=== PATIENT | male | born 1975 | race Caucasian/White ===

== ENCOUNTER 2018-10-02 17:48 | Observation (INO) | payer OTHER ==
--- NOTE | 2018-10-02 18:11 | EDPHY ---
H & P Stated Complaint: n/v, fever Time Seen by Provider: 10/02/18 18:11 HPI/ROS: HPI CHIEF COMPLAINT: Nausea, fever, abdominal discomfort HISTORY OF PRESENT ILLNESS: 43-year-old male, presents to the emergency room nausea, states that he has noticed yesterday he developed a fever to 103 he went to urgent care and had influenza done which was negative. He is recommended he comes to the emergency room if his fever did not break her increased. States he went home last night slept. Woke up today with fever. States was initially 101, then to 102 at home. Chills. Denies productive cough , denies severe sore throat, denies vomiting. He does report that he had some abdominal cramping and diarrhea. Past Medical History: Denies significant medical history Past Surgical History: Bilateral lower extremity surgeries. Social History: Denies drugs alcohol tobacco. Family History: Noncontributory ROS REVIEW OF SYSTEMS: 10 Systems were reviewed and negative with the exception of the elements mentioned in the history of present illness. Exam Constitutional nontoxic triage nursing summary reviewed, vital signs reviewed, awake/alert. Vitals at triage heart rate 130s. Temperature 38.2 degrees. Eyes normal conjunctivae and sclera, EOMI, PERRLA. HENT posterior pharynx unremarkable, normal inspection, atraumatic, moist mucus membranes, no epistaxis, neck supple/ no meningismus, no raccoon eyes. Respiratory clear to auscultation bilaterally, normal breath sounds, no respiratory distress, no wheezing. Cardiovascular tachycardic, regular rhythm, no murmur, no edema, distal pulses normal. Gastrointestinal soft, non-tender, no rebound, no guarding, normal bowel sounds, no distension, no pulsatile mass. Genitourinary no CVA tenderness. Musculoskeletal no midline vertebral tenderness, full range of motion, no calf swelling, no tenderness of extremities, no meningismus, good pulses, neurovascularly intact. Skin no rash, pink, warm, & dry, no rash, skin atraumatic. Neurologic awake, alert and oriented x 3, AAOx3, moves all 4 extremities equally, motor intact, sensory intact, CN II-XII intact, normal cerebellar, normal vision, normal speech. Psychiatric normal mood/affect. Heme/Lymph/Immune no lymphadenopathy. Differential diagnosis includes but is not limited to and in no particular order : Influenza, pneumonia, UTI Bowel obstruction, appendicitis, gallbladder disease, diverticulitis, colitis, enteritis, perforated viscus, gastritis, GERD , esophagitis, urinary tract infection, pyelonephritis, kidney stones Medical Decision Making: Plan for this patient IV establishment 2 L normal saline, lactic acid, blood cultures, CT scan abdomen pelvis with IV contrast, stool studies, chest x-ray, re-evaluate. Re-evaluation: Patient CT scan abdomen pelvis with IV contrast shows no evidence of acute appendicitis the indication for the CT scan was abdominal pain and fever. However does show gallstones. Thickened gallbladder wall. No fat stranding. Possible chronic cholecystitis. No evidence of acute cholecystitis The patient's blood work is reviewed he does not have an elevated white blood cell count. However his LFTs are elevated. Bilirubin normal. He has some type of hepatic process going on with hepatitis given the elevated LFTs. Given the patient's fever, elevated LFTs and abdominal pain the patient be admitted the hospitalist service for further evaluation. Spoke with Dr. Barreto agrees to admit. Elevated LFTS. Fever. Source: Patient - Personal History Current Tetanus/Diphtheria Vaccine: Yes Current Tetanus Diphtheria and Acellular Pertussis (TDAP): Yes Tetanus Vaccine Date: Pt says within 7 years - Medical/Surgical History Hx Asthma: No Hx Chronic Respiratory Disease: No Hx Diabetes: No Hx Cardiac Disease: No Hx Renal Disease: No Hx Cirrhosis: No Hx Alcoholism: Yes Hx HIV/AIDS: No Hx Splenectomy or Spleen Trauma: No Other PMH: denies - Social History Smoking Status: Never smoked Constitutional: Initial Vital Signs Temperature (C) 38.2 C 10/02/18 17:53 Heart Rate 133 H 10/02/18 17:53 Respiratory Rate 16 10/02/18 17:53 Blood Pressure 121/85 H 10/02/18 17:53 O2 Sat (%) 96 10/02/18 17:53 O2 Delivery Mode Room Air Allergies/Adverse Reactions: No Known Allergies Allergy (Verified 10/02/18 17:52) Home Medications: Medication Instructions Recorded Calcium Carbonate [Tums 500MG (*)] 500 - 1,000 mg PO BID PRN 10/02/18 Ibuprofen [Motrin (*)] 600 mg PO Q6H PRN 10/02/18 Ranitidine HCl [Zantac] 150 mg PO DAILY PRN 10/02/18 Medical Decision Making - Data Points Laboratory Results: Laboratory Results 10/02/18 18:39 10/02/18 18:39 Medications Given: Sodium Chloride (Ns) 1,000 mls @ 100 mls/hr IV CONT EZEQUIEL Stop: 03/31/19 22:14 Last Admin: 10/03/18 09:59 Dose: 1,000 mls Ondansetron HCl (Zofran Odt) 4 mg PO Q4HRS PRN PRN Reason: Nausea/Vomiting, Use 1st Stop: 03/31/19 22:06 Last Admin: 10/03/18 08:20 Dose: 4 mg Discontinued Medications Sodium Chloride (Ns) 1,000 mls @ 0 mls/hr IV EDNOW ONE; Wide Open PRN Reason: Protocol Stop: 10/02/18 18:17 Last Admin: 10/02/18 18:31 Dose: 1,000 mls Sodium Chloride (Ns) 1,000 mls @ 0 mls/hr IV EDNOW ONE; Wide Open PRN Reason: Protocol Stop: 10/02/18 18:17 Last Admin: 10/02/18 18:33 Dose: 1,000 mls Sodium Chloride (Ns) 1,000 mls @ 0 mls/hr IV ONCE ONE PRN Reason: Wide Open Stop: 10/02/18 20:18 Last Admin: 10/02/18 20:19 Dose: 1,000 mls Ibuprofen (Motrin) 800 mg PO EDNOW ONE Stop: 10/02/18 18:18 Last Admin: 10/02/18 18:31 Dose: 800 mg Ondansetron HCl (Zofran) 4 mg IVP EDNOW ONE Stop: 10/02/18 18:18 Last Admin: 10/02/18 18:31 Dose: Not Given Departure - Departure Disposition: [facility] Acute Clinical Impression: Elevated LFTs Fever Qualifiers: Fever type: unspecified Qualified Code(s): R50.9 - Fever, unspecified Condition: Fair
[2018-10-02] MEDS ORDERED: NS 1,000 ML IV ONE ×3 (18:16→20:17)
[2018-10-02] MEDS ORDERED: ONDANSETRON 4 MG/2 ML VIAL IVP ONE (18:17)
[2018-10-02] MEDS ORDERED: IBUPROFEN 800 MG TAB PO ONE (18:17)
[2018-10-02 18:51] LABS: PLATELET COUNT 151 10^3/uL (150-400)
[2018-10-02 18:59] LABS: PROTIME(PATIENT) 13.4 SEC (12.0-15.0)
[2018-10-02] MEDS ORDERED: IOPAMIDOL (ISOVUE-300) 100 ML BTL ONE (19:17)
[2018-10-02 21:22] LABS: HEPATITIS A ANTIBODY IGM (BCH) NEGATIVE (NEGATIVE); HEPATITIS B CORE AB IGM NEGATIVE (NEGATIVE); HEPATITIS B SURFACE ANTIGEN NEGATIVE (NEGATIVE); HEPATITIS C ANTIBODY TOTAL NEGATIVE (NEGATIVE)
[2018-10-02] MEDS ORDERED: ONDANSETRON 4 MG/2 ML VIAL IVP PRN (22:07)
[2018-10-02] MEDS ORDERED: PROMETHAZINE HCL 25 MG/ML INJ IVP PRN (22:07)
[2018-10-02] MEDS ORDERED: ONDANSETRON DISINTEGRATING 4 MG TAB PO PRN (22:07)
[2018-10-02] MEDS: NS 1,000 ML IV SCH (23:38)
--- NOTE | 2018-10-03 00:12 | PDGENHP ---
History and Physical - Chief Complaint Fever, abdominal pain - History of Present Illness 43 yo M w/ minimal PMHx presents with fever. The patient was in usual state of good health until 2 weeks ago when he noticed abdominal pain and diarrhea. He described the pain as post-prandial and mostly involving epi-gastric and RUQ. He also developed diarrhea after eating. His diarrhea quickly improved. Over the last 2 days, however, he began to develop a fever. He had a Tmax of 103 today. He continues to have nausea and mild abdominal discomfort as well. He does have a child that had a viral infection a few weeks ago. Evaluation in the ED was notable for fever, transaminitis, elevated Alk Phos, and CT notable for findings c/w chronic cholecystitis. He has a reassuring abdominal exam at this time. He is being admitted for observation. Case discussed with ED physician Dr. Hillman and surgeon Dr. Barnett. History Information - Allergies/Home Medication List Allergies/Adverse Reactions: No Known Allergies Allergy (Verified 10/02/18 17:52) Home Medications: Calcium Carbonate [Tums 500MG (*)] 500 - 1,000 mg PO BID PRN 10/02/18 [Last Taken 09/30/18] Ibuprofen [Motrin (*)] 600 mg PO Q6H PRN 10/02/18 [Last Taken 10/02/18 12:00] Ranitidine HCl [Zantac] 150 mg PO DAILY PRN 10/02/18 [Last Taken 10/01/18] I have personally reviewed and updated: family history, medical history - Past Medical History no pertinent PMH - Surgical History Additional surgical history: Bilateral lower extremity surgeries - Family History Additional family history: Gallstones - Social History Smoking Status: Never smoked Review of Systems Review of Systems: ROS: 10pt was reviewed & negative except for what was stated in HPI & below Physical Exam Physical Exam: Temp Pulse Resp BP Pulse Ox 36.7 C 79 14 124/72 H 97 10/02/18 23:47 10/02/18 23:47 10/02/18 23:47 10/02/18 23:47 10/02/18 23:47 Constitutional: appears nourished, not in pain Eyes: PERRL, EOMI Ears, Nose, Mouth, Throat: moist mucous membranes, no oral mucosal ulcers Cardiovascular: regular rate and rhythym, no murmur, rub, or gallop Respiratory: no respiratory distress, no rales or rhonchi Gastrointestinal: normoactive bowel sounds, soft, non-tender abdomen, No guarding, No rebound, No distension Skin: warm, normal color Musculoskeletal: full muscle strength, no muscle tenderness Neurologic: AAOx3, CN II-XII Intact Psychiatric: interacting appropriately, not anxious Lab Data & Imaging Review 10/02/18 18:39 10/02/18 18:39 WBC 6.02 10^3/uL (3.80-9.50) 10/02/18 18:39 RBC 5.10 10^6/uL (4.40-6.38) 10/02/18 18:39 Hgb 16.5 g/dL (13.7-17.5) 10/02/18 18:39 Hct 46.9 % (40.0-51.0) 10/02/18 18:39 MCV 92.0 fL (81.5-99.8) 10/02/18 18:39 MCH 32.4 pg (27.9-34.1) 10/02/18 18:39 MCHC 35.2 g/dL (32.4-36.7) 10/02/18 18:39 RDW 13.1 % (11.5-15.2) 10/02/18 18:39 Plt Count 151 10^3/uL (150-400) 10/02/18 18:39 MPV 10.0 fL (8.7-11.7) 10/02/18 18:39 Neut % (Auto) 73.8 % (39.3-74.2) 10/02/18 18:39 Lymph % (Auto) 13.8 % (15.0-45.0) L 10/02/18 18:39 Gibson % (Auto) 11.8 % (4.5-13.0) 10/02/18 18:39 Eos % (Auto) 0.0 % (0.6-7.6) L 10/02/18 18:39 Baso % (Auto) 0.3 % (0.3-1.7) 10/02/18 18:39 Nucleat RBC Rel Count 0.0 % (0.0-0.2) 10/02/18 18:39 Absolute Neuts (auto) 4.44 10^3/uL (1.70-6.50) 10/02/18 18:39 Absolute Lymphs (auto) 0.83 10^3/uL (1.00-3.00) L 10/02/18 18:39 Absolute Monos (auto) 0.71 10^3/uL (0.30-0.80) 10/02/18 18:39 Absolute Eos (auto) 0.00 10^3/uL (0.03-0.40) L 10/02/18 18:39 Absolute Basos (auto) 0.02 10^3/uL (0.02-0.10) 10/02/18 18:39 Absolute Nucleated RBC 0.00 10^3/uL (0-0.01) 10/02/18 18:39 Immature Gran % 0.3 % (0.0-1.1) 10/02/18 18:39 Immature Gran # 0.02 10^3/uL (0.00-0.10) 10/02/18 18:39 PT 13.4 SEC (12.0-15.0) 10/02/18 18:39 INR 1.00 (0.83-1.16) 10/02/18 18:39 APTT 29.2 SEC (23.0-38.0) 10/02/18 18:39 VBG Lactic Acid 1.5 mmol/L (0.7-2.1) 10/02/18 18:39 Sodium 139 mEq/L (135-145) 10/02/18 18:39 Potassium 4.1 mEq/L (3.3-5.0) 10/02/18 18:39 Chloride 105 mEq/L (97-110) 10/02/18 18:39 Carbon Dioxide 22 mEq/l (22-31) 10/02/18 18:39 Anion Gap 12 mEq/L (6-14) 10/02/18 18:39 BUN 14 mg/dL (7-23) 10/02/18 18:39 Creatinine 1.0 mg/dL (0.7-1.3) 10/02/18 18:39 Estimated GFR > 60 10/02/18 18:39 Glucose 117 mg/dL (70-100) H 10/02/18 18:39 Calcium 9.5 mg/dL (8.5-10.4) 10/02/18 18:39 Total Bilirubin 1.3 mg/dL (0.1-1.4) 10/02/18 18:39 Conjugated Bilirubin 0.3 mg/dL (0.0-0.5) 10/02/18 18:39 Unconjugated Bilirubin 1.0 mg/dL (0.0-1.1) 10/02/18 18:39 AST 206 IU/L (17-59) H 10/02/18 18:39 ALT 583 IU/L (21-72) H 10/02/18 18:39 Alkaline Phosphatase 188 IU/L (38-126) H 10/02/18 18:39 Total Protein 7.5 g/dL (6.3-8.2) 10/02/18 18:39 Albumin 4.3 g/dL (3.5-5.0) 10/02/18 18:39 Lipase 284 IU/L (23-300) 10/02/18 18:39 Nasal Influenza A PCR NEGATIVE FOR FLU A (NEGATIVE) 10/02/18 17:55 Nasal Influenza B PCR NEGATIVE FOR FLU B (NEGATIVE) 10/02/18 17:55 Acetaminophen < 10 mcg/mL (10-30) L 10/02/18 18:39 Hepatitis A IgM Ab NEGATIVE (NEGATIVE) 10/02/18 18:39 Hep Bs Antigen NEGATIVE (NEGATIVE) 10/02/18 18:39 Hep B Core IgM Ab NEGATIVE (NEGATIVE) 10/02/18 18:39 Hepatitis C Antibody NEGATIVE (NEGATIVE) 10/02/18 18:39 Imaging Review: Imaging Impressions Abdomen CT 10/02/18 18:16 Impression: Calcified gallstones, with mild diffuse gallbladder wall thickening suggestive of chronic cholecystitis. No pericholecystic fluid or inflammatory changes identified. No evidence of intrahepatic or extrahepatic biliary ductal dilatation. Results called to Dr. Hillman at 8:00 PM. Assessment & Plan Assessment: 43 yo M presents with fever, abdominal pain, and abnormal LFTs. Plan: 1. Fever - Elevated AST/ALT, and Alk Phos suggestive of viral hepatitis. Bilirubin normal and ducts normal on CT making obstruction less likely. Acute hep panel was negative in the ED. CT scan was notable for findings concerning for chronic cholecystitis, unclear if this is contributing. - Admit for observation - Monitor CMP - mIVF, pain control, anti-emetics PRN - Check APAP level - Blood cultures, respiratory PCR pending 2. Diffuse gallbladder wall thickening - Per radiology, this is suggestive of chronic cholecystitis. Imaging findings are not suggestive of acute infection. It is unclear if this is contributing to his presenting complaints. - Discussed case with surgeon Dr. Barnett, he will evaluate patient in the morning - Clear liquid diet for now Diet - Clears, mIVF Code - Full Ppx - SCDs Dispo - Admit under observation status
[2018-10-03 05:38] LABS: PLATELET COUNT 124 10^3/uL (150-400)
[2018-10-03] MEDS ORDERED: ENOXAPARIN 40 MG/0.4 ML SYR SC SCH (09:00)
[2018-10-03] MEDS: NS 1,000 ML IV SCH (09:59)
[2018-10-03] MEDS ORDERED: ACETAMINOPHEN 325 MG TAB PO PRN (12:42)
[2018-10-03] MEDS ORDERED: ACETAMINOPHEN 650 MG SUPP PR PRN (12:43)
[2018-10-03] MEDS ORDERED: LR 1,000 ML IV ONE ×2 (12:59→13:27)
[2018-10-03] MEDS ORDERED: EPINEPHrine 1 MG/ML INJ ONE (13:44)
[2018-10-03] MEDS ORDERED: BUPIVACAINE 0.25% 30 ML SDV ONE (13:44)
[2018-10-03] MEDS ORDERED: IOPAMIDOL (ISOVUE-300) 150 ML BTL ONE (13:44)
[2018-10-03] MEDS ORDERED: ceFAZolin 2 GM/DEXTROSE 100 ML IV ONE ×2 (14:15→14:30)
--- NOTE | 2018-10-03 14:15 | PDHPUP ---
History & Physical Update H&P update statement: This history and physical update is based on an assessment of the patient which was completed after admission or registration (within 24 hours), but prior to the surgery/procedure. H&P update: H&P reviewed & patient examined, no change in patient's condition since H&P completed
[2018-10-03] MEDS ORDERED: MIDAZOLAM 2 MG/2 ML VIAL IVP ONE (14:17)
--- NOTE | 2018-10-03 14:18 | PDANEPAE ---
ANE History of Present Illness here for chanel pascual BRIDGETTE Past Medical History - Cardiovascular History Hx Hypertension: No Hx Arrhythmias: No Hx Chest Pain: No Hx Coronary Artery / Peripheral Vascular Disease: No Hx CHF / Valvular Disease: No Hx Palpitations: No - Pulmonary History Hx COPD: No Hx Asthma/Reactive Airway Disease: No Hx Recent Upper Respiratory Infection: No Hx Oxygen in Use at Home: No Hx Sleep Apnea: No Sleep Apnea Screening Result - Last Documented: Negative - Endocrine History Hx Diabetes: No Hypothyroid: No Hyperthyroid: No - Renal History Hx Renal Disorders: No - Chronic Pain History Chronic Pain: No ANE Review of Systems Review of systems is: negative Review of Systems: - Exercise capacity Exercise capacity: >=4 METS ANE Patient History - Allergies Allergies/Adverse Reactions: No Known Allergies Allergy (Verified 10/02/18 17:52) - Home Medications Home medications: home medication list seen and reviewed Home Medications: Calcium Carbonate [Tums 500MG (*)] 500 - 1,000 mg PO BID PRN 10/02/18 [Last Taken 09/30/18] Ibuprofen [Motrin (*)] 600 mg PO Q6H PRN 10/02/18 [Last Taken 10/02/18 12:00] Ranitidine HCl [Zantac] 150 mg PO DAILY PRN 10/02/18 [Last Taken 10/01/18] - NPO status NPO Since - Liquids (Date): 10/03/18 NPO Since - Liquids (Time): 10:30 NPO Since - Solids (Date): 10/02/18 NPO Since - Solids (Time): 21:00 - Smoking Hx Smoking Status: Never smoked ANE Labs/Vital Signs - Labs Result Diagrams: 10/03/18 05:08 10/03/18 05:08 - Vital Signs Vital Signs: reviewed preoperatively; see RN documention for details Blood Pressure: 120/83 Heart Rate: 75 Respiratory Rate: 12 O2 Sat (%): 94 Height: 187.96 cm Weight: 83.91 kg ANE Physical Exam - Airway Neck exam: FROM Mallampati Score: Class 1 - Pulmonary Pulmonary: no respiratory distress - Cardiovascular Cardiovascular: regular rate and rhythym - ASA Status ASA Status: I ANE Anesthesia Plan Anesthesia Plan: general endotracheal anesthesia
[2018-10-03] MEDS ORDERED: HYDROCODONE/APAP 5/325 TAB PO PRN (14:19)
[2018-10-03] MEDS ORDERED: NALOXONE HCL 0.4 MG/ML INJ IVP PRN (14:19)
[2018-10-03] MEDS ORDERED: ACETAMINOPHEN 500 MG TAB PO PRN (14:19)
[2018-10-03] MEDS ORDERED: PROMETHAZINE HCL 25 MG/ML INJ IVP PRN (14:19)
[2018-10-03] MEDS ORDERED: oxyCODONE IR 5 MG TAB PO PRN (14:19)
[2018-10-03] MEDS ORDERED: ALBUTEROL 3 ML DEYVIAL IH PRN (14:19)
[2018-10-03] MEDS ORDERED: DEXAMETHASONE 4 MG/ML VIAL IVP PRN (14:19)
[2018-10-03] MEDS ORDERED: ONDANSETRON 4 MG/2 ML VIAL IVP PRN (14:19)
[2018-10-03] MEDS ORDERED: HYDROmorphONE/DILAUDID 2 MG/ML INJ IVP PRN (14:19)
[2018-10-03] MEDS ORDERED: MIDAZOLAM 2 MG/2 ML VIAL ONE (14:19)
[2018-10-03] MEDS ORDERED: PROPOFOL/EMULSION 500 MG/50 ML BOTTLE IV ONE (14:25)
[2018-10-03] MEDS ORDERED: ROCURONIUM 100 MG/10 ML VIAL ONE (14:32)
--- NOTE | 2018-10-03 14:33 | ASMTCMCOM ---
CM Note CM Note Notes: Chart reviewed for d/c planning. Pt is a 43y/o male, presenting at the ED with 2 weeks of nausea, fever and abdominal discomfort. He is being admitted on observation status. Surgeon will evaluate him in the morning. Pt is self-employed. No CM needs are anticipated. CM will follow for changes. D/C Plan: Anticipate independent. Date Signed: 10/03/2018 02:27 PM Electronically Signed By:Carrie Kramer
[2018-10-03] MEDS ORDERED: fentaNYL 100 MCG/2 ML INJ ONE ×4 (14:36→16:08)
[2018-10-03] MEDS ORDERED: DEXAMETHASONE 4 MG/ML VIAL ONE (14:47)
[2018-10-03] MEDS ORDERED: ONDANSETRON 4 MG/2 ML VIAL ONE (14:47)
[2018-10-03] MEDS ORDERED: KETOROLAC 30 MG/1 ML SDV ONE (15:41)
[2018-10-03] MEDS ORDERED: NEOSTIGMINE METHYLSULFATE 5 MG/5 ML SYR ONE (15:43)
[2018-10-03] MEDS ORDERED: GLYCOPYRROLATE 0.2 MG/1 ML VIAL ONE ×3 (15:43)
--- NOTE | 2018-10-03 15:50 | HOSPPROG ---
Hospitalist Progress Note Assessment/Plan: * Acute/chronic cholecystitis -d/w Dr. Casanova - to surgery later today for lap ankur * Increased LFT - due to passed gallstone vs. other (?viral) -trend LFT -will likely get intra-operative cholangiogram * Fever -no recurrence - ? viral vs. due to acute cholecystitis * Diarrhea -now resolved -DC GI PCR panel and isolation Subjective: No new complaints. Objective: Vital Signs Temp Pulse Resp BP Pulse Ox 36.8 C 75 12 120/83 H 94 10/03/18 13:35 10/03/18 14:18 10/03/18 14:18 10/03/18 14:18 10/03/18 14:18 Laboratory Results 10/03/18 05:08 10/03/18 05:08 10/02/18 10/03/18 10/04/18 05:59 05:59 05:59 Intake Total 2700 Balance 2700 PT 13.4 SEC (12.0-15.0) 10/02/18 18:39 INR 1.00 (0.83-1.16) 10/02/18 18:39 CT abd - extensive calcified gallstones, no ductal dilation - Physical Exam Constitutional: no apparent distress, appears nourished, not in pain Cardiovascular: regular rate and rhythym, no murmur, rub, or gallop Respiratory: no respiratory distress, no rales or rhonchi, clear to auscultation Gastrointestinal: normoactive bowel sounds, soft, non-tender abdomen, no palpable masses Skin: no rashes or abrasions, no fluctuance, no induration Neurologic: AAOx3, sensation intact bilaterally Psychiatric: interacting appropriately, not anxious, not encephalopathic, thought process linear ICD10 Worksheet Patient Problems: Problems Problem Status Onset Major depressive disorder Active Opioid abuse Active Alcohol dependence Active Fever Acute Elevated LFTs Acute
--- NOTE | 2018-10-03 15:58 | POSTOPPROG ---
Post Op Note Date of Operation: 10/03/18 Surgeon: Stef Barnett Anesthesiologist: Adrian Anesthesia: GET(General Endotracheal) Pre-op Diagnosis: Cholecystitis Post-op Diagnosis: same Procedure: Laparoscopic Cholecystectomy Findings: Thick wall, critical view Inf/Abcess present in the surg proc area at time of surgery?: No EBL: Minimal Specimen(s): GB
--- NOTE | 2018-10-03 16:02 | POSTANESTH ---
Post Anesthetic Evaluation Cardiovascular Status: Normal, Stable Respiratory Status: Normal, Stable Level of Consciousness/Mental Status: Can Participate in Eval Pain Control: Adequate, Prn Tx Ordered Nausea/Vomiting Control: Adequate, Prn Tx Ordered Complications Possibly Related to Anesthesia: None Noted
[2018-10-03] MEDS: fentaNYL 100 MCG/2 ML INJ IVP PRN ×2 (16:09→16:31)
[2018-10-03] MEDS ORDERED: HYDROCODONE/APAP 5/325 TAB ONE (16:19)
--- NOTE | 2018-10-03 17:05 | ASMTCMCOM ---
CM Note CM Note Notes: Chart reviewed for d/c planning and spoke with RN. Pt is a 43y/o male, presenting at the ED with 2 weeks of nausea, fever and abdominal discomfort. He is being admitted for fall bladder surgery today. Pt is self-employed, has a and two grade school aged children. Pt's insurance will not cover much of his stay per financial counseling. They have attempted to discuss options with pt including medicaid screening however, he was not in room when they came by. In terms of discharge services, pt is not covered for much. Any needs would likely be out of pocket. Pt can follow up with financial counseling after discharge. No CM needs are anticipated. CM will follow for changes. D/C Plan: Anticipate independent. Date Signed: 10/03/2018 04:37 PM Electronically Signed By:Bijal Ortega
[2018-10-03] MEDS: HYDROmorphONE/DILAUDID 1 MG/ML INJ IVP PRN ×2 (18:10→19:00)
[2018-10-03] MEDS: KETOROLAC 15 MG/1 ML SDV IVP PRN (21:26)
[2018-10-04] MEDS: KETOROLAC 15 MG/1 ML SDV IVP PRN (03:26)
[2018-10-04] MEDS: NS 1,000 ML IV SCH (03:27)
[2018-10-04] MEDS: HYDROCODONE/APAP 5/325 TAB PO PRN ×2 (05:34→09:25)
[2018-10-04] MEDS ORDERED: BISACODYL 10 MG SUPP PR PRN (07:11)
[2018-10-04] MEDS ORDERED: LACTULOSE 20 GM/30 ML UDCUP PO PRN (07:11)
[2018-10-04] MEDS ORDERED: POLYETHYLENE GLYCOL 3350 17 GM PKT PO PRN (07:11)
[2018-10-04] MEDS ORDERED: MAGNESIUM HYDROXIDE 30 ML UDCUP PO PRN (07:11)
[2018-10-04] MEDS ORDERED: SENNOSIDES/DOCUSATE SODIUM TAB PO SCH (09:00)
[2018-10-04 09:07] VITALS: BP 107/69
--- NOTE | 2018-10-05 03:28 | GDS ---
DISCHARGE DIAGNOSES: 1. Acute on chronic cholecystitis. 2. Hepatitis with transaminitis. 3. Fever. HISTORY: The patient is a 43-year-old male, who presented with upper abdominal pain and fever. His liver function tests were found to be abnormal. Gallbladder imaging revealed extensive calcified gal lstones. Surgery was consulted. He underwent laparoscopic cholecystectomy. His LFTs were improving . Imaging of the liver did not show any ductal dilatation and his distribution of LFT elevation was more transaminitis rather than bilirubin elevation. There was some concern that his transaminitis ma y be a viral hepatitis, as he did present with fever and there was no evidence of an obstructing gall stone. His fever resolved spontaneously without antibiotics. His viral hepatitis panel was negative . DISCHARGE MEDICATIONS: Please see computer record for full detailed list. NEW MEDICATIONS: Vicodin 1-2 q.4 hours as needed, 10 tablets dispensed. ADDITIONAL DISCHARGE INSTRUCTIONS: Repeat LFTs in 2 weeks to ensure normalization. The patient was seen and examined by me on the day of discharge. /[id number]/MODL
--- NOTE | 2018-10-06 17:51 | GOP ---
DATE OF OPERATION: 10/03/2018 SURGEON: Stef Barnett MD CONVERTIBLE TOP INSTALLER: None. ANESTHESIA: General endotracheal. ANESTHESIOLOGIST: Dr. Campbell. PREOPERATIVE DIAGNOSIS: Cholecystitis. POSTOPERATIVE DIAGNOSIS: Acute on chronic cholecystitis. PROCEDURE PERFORMED: Laparoscopic cholecystectomy. FINDINGS: Multiple adhesions to the gallbladder which was inflamed. The critical view was obtained, given the enlarged infundibulum juncture with the cystic duct. The cystic duct was successfully sta pled using an Endo-BLAINE 35 mm white load stapler. SPECIMENS: Gallbladder. ESTIMATED BLOOD LOSS: 5 cc. DESCRIPTION OF PROCEDURE: The patient was greeted in the preoperative suite. Once again, risks, guillermina efits, and alternatives were discussed. Consent was signed. He was then brought back to the operati ve suite, placed on the OR table in supine position. After all anesthesia machines including SCDs we re on and functioning, a [employer] time-out was performed. After successful inductio n of general anesthesia, the patient's abdomen was prepped and draped in typical sterile fashion. I commenced the procedure by making an infraumbilical cutdown through which the Veress needle was passe d. I achieved pneumoperitoneum to 15 mmHg which was well tolerated by the patient. I then inserted a 12 mm Visiport into the patient's abdomen. Once successfully in the abdomen, I placed 3 additional trocars, all 5 mm, 1 in the subxiphoid, 2 in the right upper quadrant, all under direct visualizatio n. Once successfully in the abdomen, I turned my attention toward the right upper quadrant. There w ere some adhesions to the gallbladder wall, mostly omentum, but a portion of the duodenum was stuck t o the infundibulum. This was successfully taken down with blunt dissection. I turned my attention 1 st to the infundibulum via a combination of blunt dissection and electrocautery, I 1st identified the cystic artery which was ligated and divided. I turned my attention toward taking the gallbladder fr om a dome down fashion and completely skeletonized the entire gallbladder with only 1 structure leadi ng toward it. It was somewhat enlarged and dissected it out. It was a very short cystic duct going to a widened infundibulum, too big for a clip. I enlarged my subxiphoid port and successfully divide d it at the level of the infundibulum using an Endo-BLAINE white load stapler. The specimen was passed off. I irrigated the right upper quadrant noting clear effluent in the suction canister. Local anes thesia was infiltrated in the port sites which were removed under direct visualization. I closed my infraumbilical stitch site with a 0 Vicryl stitch as well as my subxiphoid stitch site as well. Skin was closed with Monocryl over which Dermabond was placed. The patient was then extubated in the ope rative suite and taken to PACU in satisfactory condition. DRAINS: None. COUNTS: All counts were reported as correct x2. /[id number]/MODL
== END 2018-10-04 10:47 | disposition home or self-care (01) ==
LOC: F1N 23:24
PROVIDERS: ADMIT Hospitalist; ATTEND Internal Medicine
PROC: 0FT44ZZ Resection of Gallbladder, Percutaneous Endoscopic Approach (ICD-10-PCS; principal; 2018-10-03 14:00)
DX: K81.2 Acute cholecystitis with chronic cholecystitis (principal); R74.0 Nonspecific elevation of levels of transaminase and lactic acid dehydrogenase [LDH]; R50.9 Fever, unspecified; E86.0 Dehydration; R19.7 Diarrhea, unspecified
CPT/HCPCS: 47562; 74177; 96361; 96374; 96375; 99285; G0378; G0472; G0480; J0171; J0690; J1100; J1170; J1885; J2250; J2405; J2704; J2710; J3010; Q9967